=== PATIENT | female | born 1985 | race Caucasian/White ===

== ENCOUNTER → 2017-04-14 | Outpatient (CLI) | payer OTHER ==
--- NOTE | 2017-04-14 10:29 | REP ---
PELVIC SONOGRAPHY: HISTORY: Abnormal menstrual bleeding. Dysmenorrhea. No comparison study. FINDINGS: Transabdominal and transvaginal scanning are performed. Uterine dimensions are normal at 6.8 x 3.4 x 5.2 cm. Endometrial echo 0.7 cm thick. No focal uterine mass is seen. There is a tiny Nabothian cyst. No free fluid is seen in the cul-de-sac. Normal right ovary is observed with dimensions of 4.6 x 2.5 x 4.2 cm. Its Doppler flow is normal, resistive index 0.7. The left ovary is enlarged measuring 6.0 x 3.9 x 4.3 cm. It contains a 4.3 x 3.8 x 3.5 cm complex cyst with some hypoechoic internal echoes. Doppler flow of the left ovary is normal with resistive index 0.56. IMPRESSION: 4.3 cm complex hypoechoic cyst lesion left ovary. No other significant abnormality. Suggest follow-up scan in 2-3 months.
== END ==
LOC: M WHC 08:58
PROVIDERS: ATTEND Nurse Practitioner Women's Health
DX: N83.9 Noninflammatory disorder of ovary, fallopian tube and broad ligament, unspecified (principal); N92.6 Irregular menstruation, unspecified; N94.9 Unspecified condition associated with female genital organs and menstrual cycle; N94.6 Dysmenorrhea, unspecified

== ENCOUNTER → 2017-05-26 | Outpatient (CLI) | payer OTHER ==
[~2017-05-26] MED LIST: IBUP80TA PO; OXYC1TAB23 PO
--- NOTE | 2017-05-26 10:43 | REP ---
Pelvic ultrasound including transabdominal, endovaginal and Doppler ultrasound assessment. Comparison is six 04/10 2017. On the comparison study there was a 4.3 cm complex left ovarian cyst. The bladder is adequately distended. The uterus is anteverted and normal size measuring 7.2 x 3.0 x 4.4 cm. The endometrium is not thickened measuring 3.0 mm. Right ovary: Right ovary measures 3.7 x 2.6 x 3.6 cm and contains a 1.1 cm hemorrhagic cyst. There is a small volume of free fluid adjacent to the right ovary. There is vascular flow in the right ovary with the Doppler resistive index of the intraparenchymal arteries measuring 0.73. Left ovary: There is a complex cyst measuring 2.3 x 1.4 x 1.8 cm. Including the cyst the left ovary is normal size measuring 3.9 x 2.6 x 3.6 cm. There is vascular flow in the left ovary with the Doppler resistive index of the intraparenchymal arteries measuring 0.62. Nabothian cyst is incidentally noted in the cervix. Impression: The left ovarian cyst has decreased in size. There is a new right ovarian hemorrhagic cyst. There is a small volume of free fluid adjacent to the right ovary. Signed by Christian Arellano MD 05/26/2017 10:35 A
[2017-05-26 11:10] LABS: HCG, SERUM QUANTITATIVE < 1.0 MIU/ML
[2017-05-26 11:17] LABS: CARCINOEMBRYONIC ANTIGEN 1.1 NG/ML (<2.5)
[2017-05-26 11:45] LABS: CA 125 3.9 U/ML (<30.2)
== END ==
LOC: M RAD 09:56
PROVIDERS: ATTEND Obstetrics & Gynecology
DX: N83.292 Other ovarian cyst, left side (principal); N88.8 Other specified noninflammatory disorders of cervix uteri

== ENCOUNTER → 2017-07-30 | Outpatient (CLI) | payer OTHER ==
--- NOTE | 2017-07-30 16:42 | REP ---
PELVIC ULTRASOUND: Real-time sonographic evaluation of the pelvis is performed utilizing transabdominal and endovaginal technique. The bladder measures 10.9 x 8.4 x 6.4 cm. The uterus measures 7.0 x 3.4 x 4.9 cm. Endometrial thickness is 6 mm. The right ovary is enlarged measuring 6.3 x 3.3 x 3.9 cm. Complex cystic area inferiorly in the right ovary measures 3.0 x 1.9 x 3.5 cm. A more superior complex cystic area in the right ovary measures 3.1 x 3.0 x 3.2 cm. Thin internal septations and debris are noted in both cysts. There are normal sized follicles also seen in the right ovary. The left ovary measures 4.1 x 2.9 x 2.3 cm with normal size follicles. There is no evidence of ovarian torsion bilaterally with blood flow seen in each ovary with duplex Doppler evaluation, RI right ovary 0.63 and left ovary 0.62. Small amount of free fluid is seen adjacent to the right ovary. IMPRESSION: Two small complex cysts right ovary. Small amount of adjacent free fluid.
== END ==
LOC: M WHC 10:37
PROVIDERS: ATTEND Obstetrics & Gynecology
DX: D39.12 Neoplasm of uncertain behavior of left ovary (principal)

== ENCOUNTER 2017-08-05 15:43 | Day surgery (SDC) | payer OTHER ==
[~2017-08-05] VITALS: Ht 162.6 cm; Wt 67.1 kg
[2017-08-05] MEDS ORDERED: LR 1,000 ML IV ONE (16:00)
[2017-08-05 16:17] LABS: MEAN CORPUSCULAR HEMOGLOBIN 31.6 pg (27.0-33.0); MEAN CORPUSCULAR HGB CONC 35.4 g/dl (32.0-36.5); MEAN CORPUSCULAR VOLUME 89.2 fl (80.0-96.0); RED CELL DISTRIBUTION WIDTH 11.1 % (11.5-14.5)
[2017-08-05 16:34] LABS: CONTROL LINE HCG INT CTR LINE PRESENT
[2017-08-05] MEDS ORDERED: BUPIVACAINE HCL 0.25% 30 ML VIAL As Ordered ONE (20:28)
[2017-08-05] MEDS ORDERED: MIDAZOLAM INJ 2 MG/2 ML VIAL (J2250) As Ordered ONE (20:37)
[2017-08-05] MEDS ORDERED: fentaNYL 100 MCG/2 ML INJECTION (J3010) As Ordered ONE (21:09)
[2017-08-05] MEDS ORDERED: ONDANSETRON 4MG/2ML VIAL (J2405) As Ordered ONE (21:10)
[2017-08-05] MEDS ORDERED: LIDOCAINE 2% INJ 100 MG/5 ML SDV (FOR ANES.) As Ordered ONE (21:10)
[2017-08-05] MEDS ORDERED: ROCURONIUM BROMIDE 50 MG/5 ML VIAL/SYRINGE As Ordered ONE ×2 (21:10→21:38)
[2017-08-05] MEDS ORDERED: METOCLOPRAMIDE INJ 10MG/2ML VIAL (J2765) As Ordered ONE (21:10)
[2017-08-05] MEDS ORDERED: PROPOFOL 200 MG/20 ML VIAL As Ordered ONE (21:10)
[2017-08-05] MEDS ORDERED: GLYCOPYRROLATE INJ 0.2 MG/ML 2 ML VIAL As Ordered ONE (21:10)
[2017-08-05] MEDS ORDERED: NEOSTIGMINE 10 MG/10 ML VIAL (J2710) As Ordered ONE (21:10)
[2017-08-05] MEDS ORDERED: KETOROLAC 60 MG/2 ML VIAL (J1885) As Ordered ONE (21:10)
[2017-08-05] MEDS ORDERED: IBUP80TA PO (21:57)
[2017-08-05] MEDS ORDERED: OXYC1TAB23 PO (21:58)
[2017-08-05] MEDS ORDERED: SILVER NITRATE APPLICATOR As Ordered ONE (22:08)
[2017-08-05] MEDS ORDERED: METOCLOPRAMIDE INJ 10MG/2ML VIAL (J2765) IV PRN (22:15)
[2017-08-05] MEDS ORDERED: fentaNYL 100 MCG/2 ML INJECTION (J3010) IV PRN (22:15)
[2017-08-05] MEDS ORDERED: HYDROmorphone HCL 1 MG/ML SYRINGE (J1170) IV PRN (22:15)
[2017-08-05] MEDS ORDERED: LR 1,000 ML IV SCH ×2 (22:15)
[2017-08-05] MEDS ORDERED: PERCOCET 5MG/325MG TAB PO PRN (22:15)
[2017-08-05] MEDS ORDERED: ONDANSETRON 4MG/2ML VIAL (J2405) IV PRN (22:15)
[2017-08-05 23:40] VITALS: BP 103/50
--- NOTE | 2017-08-06 15:29 | RO ---
DATE OF PROCEDURE: 08/05/2017 PREOPERATIVE DIAGNOSIS: Chronic pelvic pain. POSTPROCEDURE DIAGNOSIS: Chronic pelvic pain. PROCEDURE PERFORMED: Diagnostic laparoscopy. SURGEON: Stuart Manning DO FOOD AND BEVERAGE SERVICE MANAGER: Dr. Bates ANESTHESIA: General endotracheal. SPECIMENS SENT TO PATHOLOGY: None. ESTIMATED BLOOD LOSS: 5 mL. FLUIDS REPLACED: 900 mL lactated Ringer's. DRAINS: Matthew catheter 15 mL urine output. COMPLICATIONS: None. PREOPERATIVE ANTIBIOTIC: None indicated. INTRAOPERATIVE FINDINGS: Normal uterus, anteverted, anteflexed, approximately 6 weeks in size. No evidence of endometriosis throughout the abdomen and pelvis. Small minor left adnexal adhesion that was attached the medial surface of the left ovary to the sigmoid colon, otherwise normal ovaries bilaterally. No significant abnormal ovarian cyst on either left or right side. INDICATION: The patient is a 32-year-old, 0, who has a long-standing history of chronic pelvic pain. Her pelvic pain is cyclical in nature. The patient has had multiple emergency room/outpatient visits. She has alternating ovarian cysts on both the left and right side. The most recent emergency room visit revealed a left ovarian cyst, which eventually regressed in size. Her most recent ultrasound showed a possible right ovarian cyst; however, physiologic in size. DESCRIPTION OF PROCEDURE: The patient was counseled and consented on the risks , benefits, indications, and alternatives of the procedure. Informed consent was obtained. She was taken to the operating room with an IV running, placed on the operating room table in dorsal supine position. General anesthesia was administered. The airway was secured without any difficulty. She was placed in low lithotomy position. She was prepared and draped in normal sterile fashion. Time-out was performed per protocol. A Matthew catheter was placed under sterile conditions. A speculum was placed into the vagina with good visualization of the cervix. The anterior lip of the cervix was grasped with single toothed tenaculum. Downward traction was applied. The cervix was stenotic and I did not want to risk perforation of the uterus so a sponge stick was placed instead of the typical uterine manipulator. A glove switch was performed and the attention was turned to the abdomen. 0.25% Marcaine was injected into the umbilicus. A 5 mm umbilical incision was made with the 11 blade. A Veress needle was placed through this incision. Veress needle was confirmed to be in the intraperitoneal cavity with the usual checks of ease of flow of normal saline and negative return on aspiration and a positive drop test. The opening pressure was 6 mmHg. The abdomen was insufflated with 2 liters of gas. The Veress needle was removed. A 5 mm XL trocar was placed into the intraperitoneal cavity without any difficulty. The patient was placed in Trendelenburg. An additional 5 mm right lower abdominal incision was made. Through this 5 mm incision, 5 mm XL laparoscopic trocar was placed. The atraumatic grasper was used to manipulate the pelvic anatomy with the findings noted above. Given the lack of any significant findings/suspected pathology, the decision was made to conclude the procedure. Bookkeeping Machine Mechanic images of the findings were taken and placed in the chart. The gas was released from the abdomen. The laparoscopic sheaths were removed. The skin incisions were closed with #4-0 Monocryl in subcuticular fashion and reinforced Dermabond. All instruments were removed from the vagina speculum was placed. The cervix was visualized. The tenaculum sites were cauterized with silver nitrate. All instruments were then removed from. Sponge, lap, needle and sponge counts were correct. The patient was transferred to the postanesthesia care unit in stable condition. MARKUS
== END 2017-08-05 23:55 | disposition home or self-care (01) ==
LOC: M SDC 15:43
PROVIDERS: ATTEND Obstetrics & Gynecology
DX: R10.2 Pelvic and perineal pain (principal); F17.210 Nicotine dependence, cigarettes, uncomplicated
CPT/HCPCS: 36415; 49320; 84703; 85027; 86850; 86900; 86901; J1885; J2250; J2405; J2710; J2765; J3010

== ENCOUNTER → 2019-02-04 | Outpatient (REF) | payer BC ==
[2019-02-04 18:01] LABS: INFLUENZA A AMPLIFICATION POSITIVE (NEGATIVE); INFLUENZA B AMPLIFICATION NEGATIVE (NEGATIVE)
== END ==
LOC: M LAB REF 17:19
PROVIDERS: ATTEND Physician Assistant
DX: R68.89 Other general symptoms and signs (principal)

== ENCOUNTER → 2020-10-11 | Outpatient (REF) | payer BC ==
[2020-10-15 17:15] LABS: CHLAMYDIA DNA AMPLIFICATION NEGATIVE (NEGATIVE); GC DNA AMPLIFICATION NEGATIVE (NEGATIVE)
== END ==
LOC: M SFHCWAGY 13:18
PROVIDERS: ATTEND Nurse Practitioner Women's Health
DX: Z11.3 Encounter for screening for infections with a predominantly sexual mode of transmission (principal); Z12.4 Encounter for screening for malignant neoplasm of cervix; Z01.419 Encounter for gynecological examination (general) (routine) without abnormal findings

== ENCOUNTER 2020-11-09 10:21 | Emergency (ER) | payer BC ==
[~2020-11-09] VITALS: Ht 160 cm; Wt 78.6 kg
[2020-11-09] MEDS ORDERED: HYDR-3363 PO (10:33)
[2020-11-09] MEDS ORDERED: ALBU8.5H INH (10:33)
--- NOTE | 2020-11-09 10:55 | REP ---
INDICATION: pain aftrer fall right ring finger COMPARISON: None. TECHNIQUE: AP, lateral, bilateral oblique views right 4th digit. FINDINGS: No obvious acute fracture or dislocation is appreciated. However, a very subtle injury at the base of the middle phalanx identified only on oblique view cannot be excluded and should be correlated with point of tenderness and mechanism of injury. No subcutaneous emphysema. No foreign body. IMPRESSION: No definite acute fracture or dislocation. Very subtle injury at the base of the middle phalanx cannot definitively be excluded and should be correlated with point of tenderness and mechanism of injury. <Electronically signed by Mervin Barraza > 11/09/20 1054
[2020-11-09 11:25] VITALS: BP 124/76
--- NOTE | 2020-11-10 08:57 | ED PDOC ---
Post-Departure Follow-Up radiology repor tfaxed to Maddy Valente MD Nov 10, 2020 08:57
== END 2020-11-09 11:27 | disposition home or self-care (01) ==
LOC: M ED 10:21
DX: S69.91XA Unspecified injury of right wrist, hand and finger(s), initial encounter (principal); W01.0XXA Fall on same level from slipping, tripping and stumbling without subsequent striking against object, initial encounter; Y92.019 Unspecified place in single-family (private) house as the place of occurrence of the external cause; Y93.9 Activity, unspecified; Y99.9 Unspecified external cause status; F17.200 Nicotine dependence, unspecified, uncomplicated; Z79.899 Other long term (current) drug therapy

== ENCOUNTER → 2021-06-04 | Outpatient (CLI) | payer OTHER ==
[~2021-06-04] MED LIST changes: +ALBU8.5H INH; +HYDR-3363 PO
[2021-06-04 09:13] LABS: HEMATOCRIT 40.4 % (36.0-47.0); HEMOGLOBIN 13.3 g/dl (12.0-15.5); MEAN CORPUSCULAR HEMOGLOBIN 31.1 pg (27.0-33.0); MEAN CORPUSCULAR HGB CONC 32.9 g/dl (32.0-36.5); MEAN CORPUSCULAR VOLUME 94.4 fl (80.0-96.0); PLATELET COUNT, AUTOMATED 336 10^3/uL (150-450); RED BLOOD COUNT 4.28 10^6/uL (4.00-5.40); WHITE BLOOD COUNT 7.3 10^3/uL (4.0-10.0)
[2021-06-04 09:51] LABS: ALBUMIN 3.8 GM/DL (3.2-5.2); ALT/SGPT 35 U/L (12-78); BILIRUBIN,TOTAL 0.5 MG/DL (0.2-1.0); BLOOD UREA NITROGEN 24 MG/DL (7-18); CALCIUM LEVEL 8.8 MG/DL (8.5-10.1); CARBON DIOXIDE LEVEL 28 MEQ/L (21-32); CHLORIDE LEVEL 110 MEQ/L (98-107); CHOLESTEROL LEVEL 140 MG/DL (<200); CHOLESTEROL RISK RATIO 3.888 (<5); CREATININE FOR GFR 0.71 MG/DL (0.55-1.30); GLOMERULAR FILTRATION RATE > 60.0 (>60); GLUCOSE, FASTING 67 MG/DL (70-100); HDL CHOLESTEROL 36 MG/DL (>40); LDL CHOLESTEROL 88 MG/DL (<100); NON-HDL-C 104 MG/DL; POTASSIUM SERUM 4.4 MEQ/L (3.5-5.1); SODIUM LEVEL 143 MEQ/L (136-145); TOTAL 25(OH) VITAMIN D 16.2 NG/ML (30.0-100.0); TOTAL PROTEIN 7.5 GM/DL (6.4-8.2); TRIGLYCERIDES LEVEL 82 MG/DL (<150)
--- NOTE | 2021-06-04 09:58 | REP ---
INDICATION: HTN- LABS AND EKG FIRST. COMPARISON: 06/15/2012 the latest prior TECHNIQUE: PA and lateral FINDINGS: In the right upper lobe there is a possible cavitary lesion. This measures approximately 1.7 cm. This represents a change from the prior exam. The lung lima are otherwise clear and stable. The cardiomediastinal silhouette is again seen to be within normal limits. The pleural angles are sharp. The osseous structures are stable and intact. IMPRESSION: Possible right upper lobe cavitary lesion as described above and for which contrast-enhanced CT examination of the chest is recommend. <Electronically signed by Rahat Andrews > 06/04/21 0912
[2021-06-04 10:25] LABS: HEMOGLOBIN A1c 5.3 %
--- NOTE | 2021-06-04 22:03 | ECGEPIP ---
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
== END ==
LOC: M LAB 08:39
PROVIDERS: ATTEND Family Medicine
DX: I10 Essential (primary) hypertension (principal)

== ENCOUNTER → 2021-06-06 | Outpatient (CLI) | payer OTHER ==
[~2021-06-06] MED LIST changes: +ISOVUE-370 76% 100ML VIAL As Ordered ONE
--- NOTE | 2021-06-06 15:48 | REP ---
INDICATION: ABN CXR ? LESION. COMPARISON: Chest x-ray 06/04/2021, 06/15/2012 TECHNIQUE: Bolus of 75 mL Isovue 370 scanning through the chest with coronal and sagittal reconstructions. FINDINGS: The lung lima are well inflated. There is a small Bochdalek's hernia posteriorly in the left chest through the diaphragm, a finding of no clinical significance.. No pleural thickening, calcified pleural plaque or effusion. I see no pulmonary nodules or parenchymal masses. Some minor apical scarring is noted, left greater than right. There is no curvilinear scarring to suggest a cavitary lesion. Vascular margins are noted in both upper lung zones which I believe are normal. There is no evidence for bronchiectasis. The heart is not enlarged and there is no pericardial thickening or effusion. I see no mediastinal or hilar adenopathy. Small thymic remnant in the superior mediastinum is unremarkable. No axillary or supraclavicular mass. Bone windows shows sternum, manubrium, medial clavicles, left AC joint, scapulae, visualized humeral heads, ribs and spine all without fracture or focal lesion. No compression deformity. There was no hiatal hernia in the upper abdomen. That portion of liver, spleen, upper poles of kidneys, adrenal glands and pancreas unremarkable. Gallbladder without calcified stone or mass. Stomach without hiatal hernia and no mass. IMPRESSION: 1. Negative CT chest. Radiographic finding is confluence of shadows as there are no cavitary lesions, sclerotic foci are healed the lesions in the upper chest. Nothing acute. <Electronically signed by Arben Perez > 06/06/21 0287
== END ==
LOC: M RAD 14:44
PROVIDERS: ATTEND Family Medicine
DX: R91.8 Other nonspecific abnormal finding of lung field (principal)
CPT/HCPCS: 71260; Q9967

== ENCOUNTER → 2022-09-08 | Outpatient (REF) | payer OTHER ==
[~2022-09-08] MED LIST changes: -ISOVUE-370 76% 100ML VIAL As Ordered ONE
== END ==
LOC: M PLALAB 15:11
PROVIDERS: ATTEND Nurse Practitioner Family
DX: Z12.4 Encounter for screening for malignant neoplasm of cervix (principal)

== ENCOUNTER → 2022-11-05 | Outpatient (CLI) | payer OTHER ==
[2022-11-05 11:10] LABS: HEMATOCRIT 38.6 % (36.0-47.0); HEMOGLOBIN 12.6 g/dl (12.0-15.5); MEAN CORPUSCULAR HEMOGLOBIN 30.5 pg (27.0-33.0); MEAN CORPUSCULAR HGB CONC 32.6 g/dl (32.0-36.5); MEAN CORPUSCULAR VOLUME 93.5 fl (80.0-96.0); PLATELET COUNT, AUTOMATED 332 10^3/uL (150-450); RED BLOOD COUNT 4.13 10^6/uL (4.00-5.40); WHITE BLOOD COUNT 8.8 10^3/uL (4.0-10.0)
[2022-11-05 11:42] LABS: ALBUMIN 3.6 G/DL (3.2-5.2); ALKALINE PHOSPHATASE 100 U/L (46-116); ALT/SGPT 32 U/L (7.0-40); AST/SGOT 23 U/L (<34); BILIRUBIN,TOTAL 0.5 MG/DL (0.3-1.2); BLOOD UREA NITROGEN 17 MG/DL (9-23); CALCIUM LEVEL 8.3 MG/DL (8.5-10.1); CARBON DIOXIDE LEVEL 27 MMOL/L (20-31); CHLORIDE LEVEL 107 MMOL/L (98-107); CHOLESTEROL LEVEL 119 MG/DL (<200); CREATININE FOR GFR 0.61 MG/DL (0.55-1.30); GLOMERULAR FILTRATION RATE > 60.0 (>60); GLUCOSE, FASTING 89 MG/DL (60-100); HDL CHOLESTEROL 30.5 MG/DL (>40); LDL CHOLESTEROL 65.1 MG/DL (<100); NON-HDL-C 89 MG/DL; POTASSIUM SERUM 4.7 MMOL/L (3.5-5.1); SODIUM LEVEL 140 MMOL/L (136-145); TOTAL PROTEIN 6.6 G/DL (5.7-8.2); TRIGLYCERIDES LEVEL 117 MG/DL (<150)
[2022-11-05 11:43] LABS: THYROID STIMULATING HORMONE 1.697 uIU/ML (0.55-4.78)
== END ==
LOC: M RAD 09:17
PROVIDERS: ATTEND Family Medicine
DX: R53.83 Other fatigue (principal); I10 Essential (primary) hypertension; J44.9 Chronic obstructive pulmonary disease, unspecified

== ENCOUNTER → 2023-07-17 | Outpatient (CLI) | payer OTHER ==
[2023-07-17 08:41] LABS: HEMOGLOBIN 12.6 g/dl (12.0-15.5); MEAN CORPUSCULAR HEMOGLOBIN 30.2 pg (27.0-33.0); MEAN CORPUSCULAR HGB CONC 33.2 g/dl (32.0-36.5); MEAN CORPUSCULAR VOLUME 91.1 fl (80.0-96.0); PLATELET COUNT, AUTOMATED 336 10^3/uL (150-450); RED BLOOD COUNT 4.17 10^6/uL (4.00-5.40); WHITE BLOOD COUNT 7.6 10^3/uL (4.0-10.0)
[2023-07-17 09:12] LABS: IRON (FE) 29 UG/DL (50-170); PERCENT SATURATION 8.9 % (13.2-45.0); TOTAL IRON BINDING CAPACITY 326 UG/DL (250-425)
[2023-07-17 09:51] LABS: HEMOGLOBIN A1c 5.2 % (4.0-6.0)
[2023-07-17 12:15] LABS: ALBUMIN 3.5 G/DL (3.2-5.2); ALKALINE PHOSPHATASE 91 U/L (46-116); ALT/SGPT 23 U/L (7.0-40); AST/SGOT 16 U/L (<34); BILIRUBIN,TOTAL 0.3 MG/DL (0.3-1.2); BLOOD UREA NITROGEN 15 MG/DL (9-23); CALCIUM LEVEL 8.6 MG/DL (8.5-10.1); CARBON DIOXIDE LEVEL 30 MMOL/L (20-31); CHLORIDE LEVEL 103 MMOL/L (98-107); CHOLESTEROL LEVEL 127 MG/DL (<200); CHOLESTEROL RISK RATIO 4.56 (<5); CREATININE FOR GFR 0.71 MG/DL (0.55-1.30); GLOMERULAR FILTRATION RATE > 60.0 (>60); GLUCOSE, FASTING 90 MG/DL (60-100); HDL CHOLESTEROL 27.8 MG/DL (>40); LDL CHOLESTEROL 68.2 MG/DL (<100); NON-HDL-C 99.2 MG/DL; POTASSIUM SERUM 3.5 MMOL/L (3.5-5.1); SODIUM LEVEL 139 MMOL/L (136-145); THYROID STIMULATING HORMONE 2.238 uIU/ML (0.55-4.78); TOTAL 25(OH) VITAMIN D 41.6 NG/ML (20.0-100.0); TOTAL PROTEIN 6.9 G/DL (5.7-8.2); TRIGLYCERIDES LEVEL 155 MG/DL (<150)
== END ==
LOC: M LAB 07:44
PROVIDERS: ATTEND Family Medicine
DX: R53.83 Other fatigue (principal); I10 Essential (primary) hypertension

== ENCOUNTER → 2023-10-28 | Outpatient (CLI) | payer OTHER | LOC: M RAD 14:03 | PROVIDERS: ATTEND Nurse Practitioner Family | DX: R22.41 Localized swelling, mass and lump, right lower limb (principal) ==

== ENCOUNTER → 2023-10-28 | Outpatient (CLI) | payer OTHER | LOC: M RAD 14:06 | PROVIDERS: ATTEND Family Medicine | DX: M25.572 Pain in left ankle and joints of left foot (principal) ==

== ENCOUNTER → 2023-12-28 | Outpatient (REF) | payer OTHER | LOC: M LAB REF 15:54 | PROVIDERS: ATTEND Surgery | DX: D17.1 Benign lipomatous neoplasm of skin and subcutaneous tissue of trunk (principal) ==

== ENCOUNTER → 2024-04-08 | Outpatient (REF) | payer OTHER ==
[2024-04-08 17:50] LABS: APPEARANCE, URINE CLEAR (CLEAR); BACTERIA, URINE AUTO 1+ (NEGATIVE); BILIRUBIN, URINE AUTO NEGATIVE (NEGATIVE); BLOOD, URINE BLOOD NEGATIVE (NEGATIVE); COLOR, URINE YELLOW (YELLOW); GLUCOSE, URINE (UA) AUTO NEGATIVE (NEGATIVE); KETONE, URINE AUTO NEGATIVE (NEGATIVE); LEUKOCYTE ESTERASE, URINE AUTO NEGATIVE (NEGATIVE); NITRITE, URINE AUTO NEGATIVE (NEGATIVE); PROTEIN, URINE AUTO NEGATIVE (NEGATIVE); RBC, URINE AUTO 1 /HPF (0-3); SPECIFIC GRAVITY URINE AUTO 1.014 (1.002-1.035); SQUAMOUS EPITHELIAL CELL UR AU 2 /HPF (0-6); UROBILINOGEN, URINE AUTO 0.2 mg/dL (0.0-2.0); WBC, URINE AUTO 0 /HPF (0-3)
== END ==
LOC: M LAB REF 17:06
PROVIDERS: ATTEND Physician Assistant Medical
DX: N39.0 Urinary tract infection, site not specified (principal)

== ENCOUNTER → 2024-04-13 | Outpatient (REF) | payer OTHER | LOC: M LAB REF 17:36 | PROVIDERS: ATTEND Surgery | DX: D17.23 Benign lipomatous neoplasm of skin and subcutaneous tissue of right leg (principal) ==

== ENCOUNTER → 2024-04-29 | Outpatient (CLI) | payer OTHER ==
[2024-04-29 09:24] LABS: HEMATOCRIT 37.6 % (36.0-47.0); HEMOGLOBIN 12.9 g/dl (12.0-15.5); MEAN CORPUSCULAR HEMOGLOBIN 31.4 pg (27.0-33.0); MEAN CORPUSCULAR HGB CONC 34.3 g/dl (32.0-36.5); MEAN CORPUSCULAR VOLUME 91.5 fl (80.0-96.0); PLATELET COUNT, AUTOMATED 336 10^3/uL (150-450); RED BLOOD COUNT 4.11 10^6/uL (4.00-5.40)
[2024-04-29 09:26] LABS: ALBUMIN 3.4 G/DL (3.2-5.2); ALKALINE PHOSPHATASE 73 U/L (46-116); ALT/SGPT 19 U/L (7.0-40); AST/SGOT 10 U/L (<34); BILIRUBIN,TOTAL 0.7 MG/DL (0.3-1.2); BLOOD UREA NITROGEN 15 MG/DL (9-23); CALCIUM LEVEL 8.5 MG/DL (8.5-10.1); CARBON DIOXIDE LEVEL 27 MMOL/L (20-31); CHLORIDE LEVEL 109 MMOL/L (98-107); CHOLESTEROL LEVEL 146 MG/DL (<200); CHOLESTEROL RISK RATIO 4.39 (<5); CREATININE FOR GFR 0.67 MG/DL (0.55-1.30); GLOMERULAR FILTRATION RATE > 60.0 (>60); GLUCOSE, FASTING 99 MG/DL (60-100); HDL CHOLESTEROL 33.2 MG/DL (>40); NON-HDL-C 112.8 MG/DL; POTASSIUM SERUM 3.9 MMOL/L (3.5-5.1); SODIUM LEVEL 141 MMOL/L (136-145); TOTAL PROTEIN 6.3 G/DL (5.7-8.2); TRIGLYCERIDES LEVEL 139 MG/DL (<150)
[2024-04-29 09:27] LABS: THYROID STIMULATING HORMONE 1.155 uIU/ML (0.55-4.78)
== END ==
LOC: M RAD 07:42
PROVIDERS: ATTEND Family Medicine
DX: I10 Essential (primary) hypertension (principal); R53.83 Other fatigue; E03.9 Hypothyroidism, unspecified

== ENCOUNTER → 2024-06-29 | Outpatient (REF) | payer OTHER | LOC: M LAB REF 17:22 | PROVIDERS: ATTEND Surgery | DX: D17.24 Benign lipomatous neoplasm of skin and subcutaneous tissue of left leg (principal) ==

== ENCOUNTER → 2024-07-20 | Outpatient (CLI) | payer OTHER | LOC: M WHC 15:18 | PROVIDERS: ATTEND Nurse Practitioner Family | DX: Z12.31 Encounter for screening mammogram for malignant neoplasm of breast (principal) ==

== ENCOUNTER → 2024-07-20 | Outpatient (REF) | payer OTHER ==
[2024-07-21 12:01] LABS: Trichomonas vaginalis (AMP) NOT DETECTED (NEGATIVE)
[2024-07-21 12:24] LABS: GC DNA AMPLIFICATION NEGATIVE (NEGATIVE)
[2024-07-23 13:46] LABS: HPV APTIMA Not Detected (Not Detected)
== END ==
LOC: M SFHCWAGY 10:02
PROVIDERS: ATTEND Nurse Practitioner Family
DX: Z12.4 Encounter for screening for malignant neoplasm of cervix (principal); Z11.3 Encounter for screening for infections with a predominantly sexual mode of transmission
CPT/HCPCS: 87624; 87661; 87810; 87850; G0123

== ENCOUNTER → 2024-07-20 | Outpatient (CLI) | payer OTHER | LOC: M WHC 16:15 | PROVIDERS: ATTEND Nurse Practitioner Family | DX: Z12.31 Encounter for screening mammogram for malignant neoplasm of breast (principal); Z12.4 Encounter for screening for malignant neoplasm of cervix ==

== ENCOUNTER → 2024-11-15 | Outpatient (REF) | payer OTHER | LOC: M LAB REF 17:35 | PROVIDERS: ATTEND Surgery | DX: D17.24 Benign lipomatous neoplasm of skin and subcutaneous tissue of left leg (principal); D17.22 Benign lipomatous neoplasm of skin and subcutaneous tissue of left arm ==

== ENCOUNTER → 2025-01-04 | Outpatient (CLI) | payer OTHER | LOC: M RAD 14:11 | PROVIDERS: ATTEND Family Medicine | DX: J18.9 Pneumonia, unspecified organism (principal) ==

== ENCOUNTER 2025-07-05 06:33 | Day surgery (SDC) | payer OTHER ==
[~2025-07-05] VITALS: Ht 162.6 cm; Wt 92.4 kg
[~2025-07-05 06:33] MED LIST changes: +ERGO500029 PO; +FERR325T19 PO
[2025-07-05] MEDS ORDERED: SIMETHICONE 40MG/0.6ML DROPS 30ML As Ordered ONE (07:02)
[2025-07-05 08:06] VITALS: TEMP 97.8
[2025-07-05 08:23] VITALS: BP 112/55; O2SAT 98
== END 2025-07-05 08:35 | disposition home or self-care (01) ==
LOC: M OPP 06:33
PROVIDERS: ATTEND Internal Medicine Gastroenterology
DX: K64.0 First degree hemorrhoids (principal); K62.5 Hemorrhage of anus and rectum; R12 Heartburn; Z79.899 Other long term (current) drug therapy; F17.210 Nicotine dependence, cigarettes, uncomplicated
CPT/HCPCS: 43239; 45378; 88305; J3010

== ENCOUNTER → 2025-08-25 | Outpatient (REF) | payer OTHER | LOC: M LAB REF 17:19 | PROVIDERS: ATTEND Student in an Organized Health Care Education/Training Program | DX: R19.7 Diarrhea, unspecified (principal) ==

== ENCOUNTER → 2025-09-12 | Outpatient (CLI) | payer OTHER ==
[2025-09-12 07:48] LABS: BASO # 0.0 10^3/uL (0.0-0.2); BASO % 0.3 % (0.0-1.0); EOS # 0.1 10^3/uL (0.0-0.5); EOS % 0.5 % (0.0-3.0); LYMPH # 2.1 10^3/uL (1.5-5.0); LYMPH % 22.7 % (24.0-44.0); MONO # 0.6 10^3/uL (0.0-0.8); MONO % 6.0 % (2.0-8.0); NEUTROPHILS # 6.5 10^3/uL (1.5-8.5); NEUTROPHILS % 70.1 % (36.0-66.0); PLATELET COUNT, AUTOMATED 374 10^3/uL (150-450)
[2025-09-12 08:24] LABS: ALT/SGPT 26 U/L (7.0-40); AST/SGOT 24 U/L (<34); CALCIUM LEVEL 8.9 MG/DL (8.5-10.1); CARBON DIOXIDE LEVEL 27 MMOL/L (20-31); CHLORIDE LEVEL 106 MMOL/L (98-107); CHOLESTEROL LEVEL 156 MG/DL (<200); CHOLESTEROL RISK RATIO 4.98 (<5); CREATININE FOR GFR 0.75 MG/DL (0.55-1.30); GLOMERULAR FILTRATION RATE > 90.0 (>58); IRON (FE) 61 UG/DL (50-170); LDL CHOLESTEROL 83.3 MG/DL (<100); NON-HDL-C 124.7 MG/DL; POTASSIUM SERUM 4.2 MMOL/L (3.5-5.1); SODIUM LEVEL 142 MMOL/L (136-145); TRIGLYCERIDES LEVEL 207 MG/DL (<150)
[2025-09-12 08:25] LABS: TOTAL 25(OH) VITAMIN D 49.8 NG/ML (20.0-100.0)
[2025-09-12 08:28] LABS: ESTIMATED AVERAGE GLUCOSE 105.0 MG/DL (60-110)
== END ==
LOC: M LAB 07:00
PROVIDERS: ATTEND Student in an Organized Health Care Education/Training Program
DX: D50.9 Iron deficiency anemia, unspecified (principal); Z68.36 Body mass index [BMI] 36.0-36.9, adult

== ENCOUNTER → 2025-09-27 | Outpatient (CLI) | payer OTHER | LOC: M RAD 09:36 | PROVIDERS: ATTEND Student in an Organized Health Care Education/Training Program | DX: K42.9 Umbilical hernia without obstruction or gangrene (principal) ==

== ENCOUNTER → 2025-10-20 | Outpatient (CLI) | payer OTHER | LOC: M WHC 09:07 | PROVIDERS: ATTEND Nurse Practitioner Family | DX: Z12.31 Encounter for screening mammogram for malignant neoplasm of breast (principal) ==

== ENCOUNTER → 2025-10-20 | Outpatient (CLI) | payer OTHER ==
[2025-10-20 13:07] LABS: Trichomonas vaginalis (AMP) NOT DETECTED (NEGATIVE)
[2025-10-20 13:19] LABS: HIV 1&2 SCREEN NEGATIVE (NEGATIVE)
[2025-10-20 13:27] LABS: HEPATITIS C VIRUS ABY INDEX < 0.02 INDEX (<0.8)
[2025-10-20 13:31] LABS: GC DNA AMPLIFICATION NEGATIVE (NEGATIVE)
== END ==
LOC: M LAB 09:27
PROVIDERS: ATTEND Nurse Practitioner Family
DX: Z11.3 Encounter for screening for infections with a predominantly sexual mode of transmission (principal)